=== PATIENT | female | born 2005 | race Caucasian/White ===

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

== ENCOUNTER 2024-06-11 16:56 | Outpatient (CLI) | payer OTHER, SELFPAY | END 2024-06-11 23:59 | disposition home or self-care (01) | LOC: LAB.DROPOF 16:56 | PROVIDERS: PCP Family Medicine; Visit Provider Family Medicine | DX: N39.0 Urinary tract infection, site not specified (principal) | CPT/HCPCS: 87086; 87088; 87186 ==

== ENCOUNTER 2024-10-05 11:15 | Outpatient (CLI) | payer OTHER, SELFPAY ==
[2024-10-05 16:54] LABS: Basophils % 0.5 % (0.1-2.0); Eosinophils # 0.1 K/mm3 (0.0-0.4); Eosinophils % 0.8 % (0.1-12.0); Hematocrit 41.6 % (37.0-47.0); Hemoglobin 14.1 g/dL (12.2-16.2); Lymphocytes # 1.6 K/mm3 (0.7-4.5); Mean Corpuscular HGB Conc 33.9 g/dL (31.8-35.4); Mean Corpuscular Hemoglobin 29.4 pg (27.0-31.2); Mean Corpuscular Volume 86.7 fl (81-99); Mean Platelet Volume 10.8 fl (7.4-10.4); Monocytes # 0.9 K/mm3 (0.1-1.0); Monocytes % 11.3 % (1.7-9.3); Neutrophils # 5.7 K/mm3 (1.8-7.8); Neutrophils % 68.2 % (37.0-80.0); Platelet Count 291 K/mm3 (142-424); Red Cell Distribution Width 12.6 % (11.5-17.5); White Blood Count 8.3 K/mm3 (4.5-13.0)
[2024-10-05 18:14] LABS: Chloride 103 mmol/L (98-107)
[2024-10-05 18:15] LABS: Albumin Level 4.8 g/dl (3.5-5.0); Potassium 4.3 mmoL/L (3.5-5.1); Sodium 139 mmol/L (136-145)
[2024-10-05 18:17] LABS: Blood Urea Nitrogen 12 mg/dl (7-17); Estimated Glomerular Filt Rate 127 ml/min (>60); GFR (African American) 154 ML/MIN (>60)
[2024-10-05 18:18] LABS: Alanine Aminotransferase 20 U/L (12-78); Albumin/Globulin Ratio 1.9 (1.1-1.8); Alkaline Phosphatase 49 U/L (38-126); Anion Gap 18.3 mEq/L (5-15); Aspartate Amino Transferase 29 U/L (14-36); Bilirubin,Total 0.5 mg/dl (0.2-1.3); Calcium 9.5 mg/dl (8.4-10.2); Carbon Dioxide 22 mmol/L (22.0-30.0); Globulin 2.5 g/dL (1.3-3.2); Glucose 58 mg/dl (74-100); Total Protein,Serum 7.3 g/dl (6.3-8.2)
[2024-10-05 18:50] LABS: Thyroid Stimulating Hormone 2.81 uIU/mL (0.465-4.68)
[2024-10-05 18:54] LABS: HIV Combo NEGATIVE (Negative)
[2024-10-05 19:01] LABS: Hepatitis C Ab Qual. W/ RFX NEGATIVE (Negative)
[2024-10-05 19:30] LABS: Vitamin B12 291 pg/mL (239-931)
[2024-10-05 20:50] LABS: 25-OH Vitamin D, Total 22.4 ng/mL (30-100)
== END 2024-10-05 23:59 | disposition home or self-care (01) ==
LOC: LAB.DROPOF 10-06 09:43
PROVIDERS: PCP Nurse Practitioner Family; Visit Provider Nurse Practitioner Family
DX: R25.1 Tremor, unspecified (principal); Z11.59 Encounter for screening for other viral diseases; Z11.4 Encounter for screening for human immunodeficiency virus [HIV]; E55.9 Vitamin D deficiency, unspecified; R73.09 Other abnormal glucose
CPT/HCPCS: 80053; 82306; 82607; 84443; 85025; 86803; 87389

== ENCOUNTER 2025-02-23 21:29 | Emergency (ER) | payer OTHER, SELFPAY ==
[2025-02-23 21:41] VITALS: BP 112/71; PULSE 122; RESP 20; TEMP 38.7; O2SAT 98; BMI 22.4
[2025-02-23] MEDS: MAGIC MOUTHWASH 300ML BOTTLE 15 ML PO (22:00)
[2025-02-23] MEDS: KETOROLAC 30MG/ML VIAL 30 MG IM (22:00)
[2025-02-23] MEDS: PENICILLIN G BENZATHINE 1,200,000 UNITS/2ML SYRINGE 2400000 UNIT IM (22:01)
--- NOTE | 2025-02-23 22:13 | PC.NURSE ---
Pt medicated, does not want to eat, provided water for PO challenge
--- NOTE | 2025-02-23 22:37 | HMH.EDGENADL ---
Discharge Plan Disposition Patient Disposition: Home, Self-Care Condition: Good Prescriptions Prescriptions: No Action Almedina (28) 1-35 mg-mcg tablet 1 tab PO DAILY Patient Comments: TAKE ONE (1) TABLET EVERY DAY BY ORAL ROUTE. amoxicillin 875 mg tablet 875 mg PO BID 10 Days Qty: 20 0RF propranolol 20 mg tablet 20 mg PO BID Qty: 60 2RF cholecalciferol (vitamin D3) 125 mcg (5,000 unit) capsule 125 mcg PO DAILY Qty: 120 2RF sertraline 100 mg tablet 100 mg PO DAILY 90 Days Qty: 90 0RF hydroxyzine pamoate 25 mg capsule 50 mg PO HS 30 Days Qty: 60 2RF Referrals Follow up/Referrals: Jessica Garces APRN [Primary Care Provider, Family Practice] - See instructions Activity Restrictions/Add. Instructions Additional Instructions/Restrictions: Please take Tylenol and ibuprofen every 4-6 hours as needed for pain/fever. Use 15 mL of the Magic mouthwash 4 times daily as needed. Make sure you stay hydrated. You do not need to take antibiotics since you were given the shot here. Follow-up closely with your primary care provider. Return to the emergency department for new or worsening symptoms. Clinical Impressions Clinical Impression: Strep throat Instructions Patient Instructions: DI for Strep Throat, DI for Pharyngitis/Tonsillopharyngitis -- Adult Print Language Print Language: Kiswahili Discharge ED Provider: Nissa Shukla General Adult HPI General Chief complaint: PAIN Stated complaint: Sore throat,EDUARDO,body aches Time Seen by Provider: 02/23/25 21:41 Mode of Arrival: Ambulatory Source of Information: Patient Description of Symptoms (Recalled from ER Triage Doc. by RN): pt reports strep throat that was diagnosed yesterday, she was given amoxicilllin and a steriod injection but has not had any relief. History of Present Illness HPI narrative: This patient is a 19-year-old female without significant past medical history presenting to the emergency department for evaluation with concern for sore throat. Patient was diagnosed with strep yesterday and states that she cannot swallow the amoxicillin secondary to pain. She was given a steroid shot but states that she is not gotten any relief. She denies any trouble breathing. She is still able to tolerate swallowing liquids. No other concerns or complaints noted Related Data Home Medications ?Medication ?Instructions ?Recorded ?Confirmed norethindrone 1 mg-ethinyl 1 tab PO DAILY 08/29/23 02/23/25 estradiol 35 mcg tablet (Alyacen) Previous Rx's ?Medication ?Instructions ?Recorded cholecalciferol (vitamin D3) 125 125 mcg PO DAILY #120 caps 10/06/24 mcg (5,000 unit) capsule propranolol 20 mg tablet 20 mg PO BID #60 tabs 10/06/24 sertraline 100 mg tablet 100 mg PO DAILY 90 days #90 tabs 10/19/24 hydroxyzine pamoate 25 mg capsule 50 mg (2 x 25 mg) PO HS sleep 30 11/17/24 days #60 caps amoxicillin 875 mg tablet 875 mg PO BID 10 days #20 tabs 02/23/25 Allergies Allergy/AdvReac Type Severity Reaction Status Date / Time No Known Allergies Allergy Verified 02/23/25 10:21 [facility] Disclaimer: The information contained in this section may have been updated after the patient was seen, as this information can be updated by other users. Medical History Generalized anxiety disorder Surgical History History of tonsillectomy and adenoidectomy Social History Smoking Status: Never smoker second hand exposure: Yes (at the restaurant) alcohol intake: current alcohol intake frequency: holidays/special occasions only counseling given: No substance use type: denies use current occupational status: employed and student Travel in the last 8 weeks?: None adopted: No caregiver/support person: No foster care: No household members: family housing: house lives independently: No marital status: single number of children: 0 number of grandchildren: 0 education level: high school service: No Hx Recent Travel: No sexually active: No caffeine: No physical activity: none working smoke detector in home: Yes fire extinguisher in home: Yes carbon monox detector in home: Yes firearms in home: Yes firearms unloaded and locked: Yes do you feel safe at home: Yes victim of physical abuse: No victim of emotional abuse: No victim of sexual abuse: No would you like helpful sources: No Other Medical History Have you received the Flu Vaccine for this season: No Have you received the Pneumonia Vaccine: Yes ROS Obtained: Yes All systems reviewed & no additional complaints except as documented Physical Exam General General appearance: alert, in no apparent distress and anxious Comment: Anxious appearing, tearful Head Head exam: atraumatic and normocephalic Eye Eye exam: Present normal appearance, PERRL and EOMI ENT ENT exam: Present mucous membranes moist, normal external ear exam and other (Posterior oropharynx erythematous with exudates. No uvular deviation. No trismus, stridor, or muffled voice) Neck Neck exam: Present normal inspection, full ROM and trachea midline; Absent tenderness Chest Chest inspection: Present normal inspection and symmetric chest wall rise; Absent tenderness Respiratory Respiratory exam: Present normal lung sounds bilaterally; Absent respiratory distress, wheezes, stridor or accessory muscle use Cardiovascular Cardiovascular exam: Present normal rhythm and tachycardia Abdominal Exam Abdominal exam: Present soft; Absent distention, tenderness or guarding Extremities Exam Extremities exam: Present normal inspection, full ROM and normal capillary refill; Absent tenderness or edema Back Exam Back exam: Present normal inspection and full ROM; Absent tenderness Neurological Exam Neurological exam: Present alert, oriented X3, CN II-XII intact and normal gait; Absent motor sensory deficit Psychiatric Psychiatric exam: Present normal affect and normal mood Skin Skin exam: Present warm and dry Medical Decision Making Medical Records Medical records reviewed: Yes I reviewed the patient's medical records. Screening: Per USPSTF and CDC recommendations, given the prevalence of disease in our region, it is our hospital?s policy to screen for HIV and viral Hepatitis for all patients aged 18 and over and those with ongoing risk factors. Pillo Inquiry Pt receiving controlled substance: No Vital Signs: 02/23/25 21:41 Temperature 101.7 F H Temperature Source Oral Pulse Rate [Right] 122 H Respiratory Rate 20 Blood Pressure [Right Arm] 112/71 Blood Pressure Mean [Right Arm] 84 02 Sat by Pulse Oximetry 98 Oxygen Delivery Method Room Air Lab Data Lab results reviewed: Yes I reviewed the patient's lab results. Orders (Tests/Meds): ED MEDICATIONS Discontinued Medications Generic Name Dose Route Start Last Admin Trade Name Freq PRN Reason Stop Dose Admin Ketorolac Tromethamine 30 mg 02/23/25 21:47 02/23/25 22:00 Ketorolac 30mg/Ml Vial IM 02/23/25 21:48 30 mg ONCE ONE Administration Penicillin G Benzathine 2,400,000 unit 02/23/25 21:47 02/23/25 22:01 Penicillin G Benzathine 1,200,000 Units/2ml Syringe IM 02/23/25 21:48 2,400,000 unit ONCE ONE Administration Tetracycl/Hydrocort/Nystatin/Diphen 15 ml 02/23/25 21:48 02/23/25 22:00 Magic Mouthwash 300ml Bottle PO 02/23/25 21:49 15 ml ONCE ONE Administration Medical Decision Narrative: In summary, this patient is a 19-year-old female presenting to the Emergency Department for evaluation of sore throat. She started amoxicillin for strep but is not feeling any better and states that she is not able to swallow secondary to pain. Differential diagnoses considered include but are not limited to retropharyngeal abscess, peritonsillar abscess, pain secondary to strep throat. Ruling out the most morbid conditions drove assessment. On exam, the patient is nontoxic-appearing. She is anxious., Tearful, and mildly tachycardic in the setting of low-grade fever but she has no tachypnea, no stridor, no drooling, no trismus. She has no muffled voice or uvular deviation. I do not feel that she likely has abscess at this time based on reassuring history and exam. Patient was given Magic mouthwash, IM Toradol, and a shot of Bicillin. She tolerated this well with improvement in symptoms and was able to continue tolerating oral intake. She felt better. Given this, I feel that she is appropriate for discharge home. She is given instructions for close PCP follow-up and very strict turn precautions. Critical Care Critical Care Time Critical Care Time: No
[2025-02-23 22:46] VITALS: BP 112/79; PULSE 99; RESP 20; TEMP 36.7; O2SAT 98
== END 2025-02-23 22:48 | disposition home or self-care (01) ==
PROVIDERS: Emergency Provider Emergency Medicine; PCP Nurse Practitioner Family
DX: J02.0 Streptococcal pharyngitis (principal); R50.9 Fever, unspecified; R00.0 Tachycardia, unspecified
CPT/HCPCS: 96372; 99283; J0561; J1885

== ENCOUNTER 2025-02-23 21:43 | Outpatient (CLI) | payer OTHER, SELFPAY ==
--- OUTSIDE RECORDS SUMMARY | 2025-02-23 21:46 | XMS_ITS | Clinical Summary ---
Author Organization Healthcare Address [address] [place] [address] Care Team Providers Care Pin Inserter Regulator Name Role Phone Yohan Tavarez MD Primary Care Provider + [phone] Family History Medical History Relation Name Comments Conversions - Other Father Healthy adolescent Conversions - Other Mother Healthy adolescent Relation Name Status Comments Father Mother Social History Tobacco Use Types Packs/Day Years Used Date Smoking Tobacco: Never Comments Unknown Sex and Gender Information Value Date Recorded Sex Assigned at Not on file Legal Sex Female 7:57 PM EDT Gender Identity Not on file Sexual Orientation Not on file Last Filed Vital Signs Vital Sign Reading Time Taken Comments Blood Pressure - - Pulse - - Temperature - - Respiratory Rate - - Oxygen Saturation - - Inhaled Oxygen Concentration - - Weight 30.4 kg (67 lb) 10/17/2015 1:08 PM EST Height 129.5 cm (4' 3 ) 08/22/2015 1:35 PM EST Body Mass Index - - Plan of Treatment Not on file Care Teams Pin Inserter Regulator Relationship Specialty Start Date End Date Yohan Tavarez MD [address] [place] [address] PCP - General 01/06/21
== END 2025-02-23 23:59 | disposition home or self-care (01) ==
LOC: LAB 21:44
PROVIDERS: PCP Nurse Practitioner Family; Visit Provider Nurse Practitioner Family
DX: J02.9 Acute pharyngitis, unspecified (principal)

== ENCOUNTER 2025-06-01 11:53 | Outpatient (CLI) | payer OTHER, SELFPAY ==
--- OUTSIDE RECORDS SUMMARY | 2025-06-01 22:33 | XMS_ITS | Clinical Summary ---
Author Organization Healthcare Address [address] [place] [address] Care Team Providers Care Rail Car Loader Name Role Phone Yohan Tavarez MD Primary Care Provider + [phone] Family History Medical History Relation Name Comments [...] of Treatment Not on file Care Teams Rail Car Loader Relationship Specialty Start Date End Date Yohan Tavarez MD [address] [place] [address] PCP - General 01/06/21
== END 2025-06-01 23:59 | disposition home or self-care (01) ==
LOC: LAB.DROPOF 22:32
PROVIDERS: PCP Nurse Practitioner Family; Visit Provider Nurse Practitioner Family
DX: R07.0 Pain in throat (principal)
CPT/HCPCS: 87070

== ENCOUNTER 2025-06-22 15:15 | Outpatient (CLI) | payer OTHER, SELFPAY ==
[2025-06-23 03:36] LABS: Hepatitis B Surface Antigen Negative (Negative)
[2025-06-23 07:11] LABS: Rubella Antibodies, IgG 2.02 index (Immune >0.99)
--- OUTSIDE RECORDS SUMMARY | 2025-06-23 12:35 | XMS_ITS | Clinical Summary ---
Author Organization Healthcare Address [address] [place] [address] Care Team Providers Care Expansion Joint Finisher Name Role Phone Yohan Tavarez MD Primary Care Provider + [phone] Family History Medical History Relation Name Comments [...] of Treatment Not on file Care Teams Expansion Joint Finisher Relationship Specialty Start Date End Date Yohan Tavarez MD [address] [place] [address] PCP - General 01/06/21
--- OUTSIDE RECORDS SUMMARY | 2025-06-23 12:36 | XMS_ITS | Data Portability ---
Author Organization [facility] Address [address] [place] [address] Assessment Encounter Date Assessment Date Assessment LastModified by Organization Details LastModified Time 07/24/2023 07/24/2023 Reproductive life plan discussed. Patient does plan to have children in the future. control offered. Patient accepted. Patient is having protected sex. Not available 07/24/2023 22:56:41 04/22/2024 04/22/2024 Reproductive life plan discussed. Patient does plan to have children in the future. control offered. Patient accepted. Number of sexual partners: 4 Patient is having protected sex. Patient counseled on abuse, neglect, violence, and exploitation. Partner history was discussed. Domestic abuse counseling done. [facility] for domestic abuse centers posted in patient waiting rooms and bathrooms. Not available 04/22/2024 15:39:14 08/05/2024 08/05/2024 Reproductive life plan discussed. Patient does plan to have children in the future. control offered. Patient accepted. Number of sexual partners: _ Patient is having sex. Patient counseled on abuse, neglect, violence, and exploitation. Partner history was discussed. Domestic abuse counseling done. [facility] for domestic abuse centers posted in patient waiting rooms and bathrooms. Not available 08/05/2024 16:47:43 Plan of Treatment Reminders Order Date Submit Date Provider Last Modified By Organization Details Last Modified Time Details Appointments None recorded. Lab CT + NG DNA, PCR, unspecified specimen 2023 024 [facility], [address], [address], [place], [address], 4 06:20:35 culture, urine 2022 023 [facility], [address], [place], [address], 3 06:17:37 Referral None recorded. Procedures None recorded. Surgeries None recorded. Imaging None recorded. Medication Orders Alyacen 1/35 (28) 1 mg-35 mcg tablet 2023 024 [facility] [facility], [address] [place] [address], [address], 5 09:21:43 Alyacen 1/35 (28) 1 mg-35 mcg tablet 2023 024 [facility], [address] [place] [address], [address], 4 16:51:10 Nortrel 1/35 (28) 1 mg-35 mcg tablet 2022 023 [facility], [address], [place], [address], 3 15:12:23 estradiol 1 mg tablet 2022 023 [email or web address] [id number], [address] [place], [place], [id number], 3 14:30:18 Patient TargetsNo targets recorded. Patient Instructions Encounter Date Encounter Id Patient Instructions Last Modified By Organization Details Last Modified Time 04/11/2023 [id number] learning about control: intrauterine device (iud) Not available 04/12/2023 09:17:04 Effectiveness, correct use, advantages/disadva ntages, common side effects, serious complications, contra-indications /precautions and return to fertility were reviewed for the following: Combined oral contraceptive (pills/patch/ring) , Progesterone-only pills, DepoProvera injection, Nexplanon implant,Stacie IUD, Mirena IUD, Paragard IUD, Condoms, Diaphragm, Spermacides. Not available 04/12/2023 09:16:18 Risks of hormona l control reviewed, including but not limited to thrombosis, embolism, pulmonary embolism, stroke, disability, sexual dysfunction & . Patient understands these risk are increased with smoking. Patient understands that these risks may be increased when using the patch (Ortho-Evra) or the vaginal ring (Nuva-Ring) when compared to oral control pills. Risks of bone loss with Depo Provera also reviewed. All questions answered. Pt understands & accepts risks. Instructions/warni ng signs given. RTC for IUD insertion-Kyleena Not available 04/12/2023 09:17:03 05/01/2023 [id number] -breakthrough bleeding -Estradiol 1mg [id number] -RTC for TVUS Not available 05/02/2023 12:34:08 07/24/2023 [id number] 1. Finish last 6 pills of the extended cycle pill pack, 2 pills per day x 3 days then start Nortrel. Follow up in 3 months. Consider testing for Von Willebrand's if prolonged bleeding persists. 2. Send urine culture. Recommend Rephresh for vaginal /urine odor. Not available 07/24/2023 22:53:45 We will call abnormal test results in 7-10 days. Patient is advised that normal test results will be retrievable through [facility] Patient Portal and that they will be notified of the availability of normal results from [facility] by phone call, text or email. Not available 07/24/2023 22:53:13 04/22/2024 [id number] body mass index: care instructions Not available 04/22/2024 15:44:00 Continue MYRIAM's. Plan first cervical cancer screening with next years exam. Not available 04/22/2024 15:44:33 1. Risks of hormonal control reviewed, including but not limited to thrombosis, embolism, pulmonary embolism, stroke, disability, sexual dysfunction & . Patient understands these risk are increased with smoking. Patient understands that these risks may be increased when using the patch (Ortho-Evra) or the vaginal ring (Nuva-Ring) when compared to oral control pills. Risks of bone loss with Depo Provera also reviewed. All questions answered. Pt understands & accepts risks. Instructions/warni ng signs given. 2. We will call abnormal test results in 7-10 days. Patient is advised that normal test results will be retrievable through [facility] Patient Portal and that they will be notified of the availability of normal results from [facility] by phone call, text or email. Not available 04/22/2024 15:44:19 08/05/2024 [id number] body mass index: care instructions Not available 08/05/2024 16:47:13 Effectiveness, correct use, advantages/disadva ntages, common side effects, serious complications, contra-indications /precautions and return to fertility were reviewed for the following: Combined oral contraceptive (pills/patch/ring) , Progesterone-only pills, DepoProvera injection, Nexplanon implant,Stacie IUD, Mirena IUD, Paragard IUD, Condoms, Diaphragm, Spermacides. Not available 08/05/2024 16:47:18 Risks of hormona l control reviewed, including but not limited to thrombosis, embolism, pulmonary embolism, stroke, disability, sexual dysfunction & . Patient understands these risk are increased with smoking. Patient understands that these risks may be increased when using the patch (Ortho-Evra) or the vaginal ring (Nuva-Ring) when compared to oral control pills. Risks of bone loss with Depo Provera also reviewed. All questions answered. Pt understands & accepts risks. Instructions/warni ng signs given. Not available 08/05/2024 16:47:22 Reason for Referral None Reported. Results Created Date Observation Date Name Description Value Unit Range Abnormal Flag Note LastModifiedBy Organization Detail LastModifiedTime 07/24/2007/26/2023 URINE CULTU GERSON DURANT urine culture, routine Final report Not Available [facility] ([facility]) [address], [place], [address], 07/26/2023 06:17:37 07/24/2007/26/2023 URINE CULTU RE, ROUTI NE result 1 COMMEN T Mixed uroge nital aníbal Less than 10,00 0 colon ies/m L Not Available [facility] ([facility]) [address], [place], [address], 07/26/2023 06:17:37 04/22/2004/24/2024 CHLAM YDIA/ GC AMPLI FICAT ION chlamydia trachomatis, FLOYD Negati ve negati ve Not Available [facility] ([facility]) [address], [place], [address], 04/24/2024 06:20:35 04/22/2004/24/2024 CHLAM YDIA/ GC AMPLI FICAT ION neisseria gonorrhoeae, FLOYD Negati ve negati ve Not Available [facility] ([facility]) [address] [place], [address], 04/24/2024 06:20:35 Result Notes None recorded. Problems Name Problem SNOMED Code Status Onset Date Resolution Date Notes Provider Name and Address Organization Details Recorded Time COVID-19 [id number] Completed 202110/19/2022 Carmen lund, [place] - [facility] 3 15:26:00 Fatigue 35724138 Completed 202108/05/2024 Lida Larsen, CAD TECHNICIAN [address], [place], [address], [place] - [facility] 4 16:45:22 Normal body mass index 12222252 Active 2021 Lida Larsen, CAD TECHNICIAN [address], [place], [address], [place] - [facility] 4 16:45:24 Dysmenor leroy [id number] Completed 202104/22/2024 Removal Reason: resolved with BCP Sherly Ramesh, CAD TECHNICIAN [address], [place], [address], [place] - [facility] 4 15:43:04 Uses depot contrace ption 654846476 Completed 202204/12/2023 Lida Larsen, CAD TECHNICIAN [address], [place], [address], [place] - [facility] 3 09:15:42 Irregula r intermen strual bleeding 22293763 Completed 202204/22/2024 Sherly Ramesh APRN [address], [place], [address], [place] - [facility] 4 15:43:13 Dyspareu [facility] 02235263 Active 2022 Lida Larsen, CAD TECHNICIAN [address], [place], [address], [place] - [facility] 4 16:45:19 Break-th rough bleeding 91392000 Completed 202204/22/2024 Sherly Ramesh APRN [address], [place], [address], [place] - [facility] 4 15:43:09 Problem Notes None recorded. Procedures Surgical History Date Name Laterality Status Provider Name and Address Organization Details Recorded Time Tonsillectomy completed Liat Cintron [place] - [facility] 08/13/2019 14:25:23 Imaging Results None recorded. Procedure Notes None recorded. Medical Equipment None Reported. Allergies No known drug allergies Medications Name Sig Start Date Stop Date Status Note LastModified by Organization Details LastModified Time amoxicillin 500 mg capsule TAKE 1 CAPSULE BY MOUTH TWICE DAILY FOR 10 DAYS active Not Available Not Available No t Available trazodone 50 mg tablet 09/18 completed Not Available Not Available Not Available azithromyci n 250 mg tablet 04/04 completed Not Available Not Available Not Available phenazopyri dine 200 mg tablet TAKE 1 TABLET BY MOUTH 3 TIMES DAILY FOR 2 DAYS 09/12 completed Not Available Not Available Not Available sertraline 100 mg tablet 1 po qd active Not Available Not Available Not Available sulfamethox azole 800 mg-trimetho prim 160 mg tablet TAKE 1 TABLET BY MOUTH TWICE DAILY FOR 7 DAYS 08/05 completed Not Available Not Available Not Available estradiol 1 mg tablet TAKE 1 TABLET BY MOUTH EVERY DAY FOR 21 DAYS 07/24 completed Not Available Not Available Not Available triamcinolo ne acetonide 0.025 % topical cream 04/22 completed Not Available Not Available Not Available meclizine 25 mg tablet TAKE 1 TABLET BY MOUTH EVERY 8 HOURS NEEDED 10/19 completed Not Available Not Available Not Available erythromyci n 5 mg/gram (0.5 %) eye ointment 09/12 completed Not Available Not Available Not Available sertraline 25 mg tablet TAKE 1 TABLET BY MOUTH DAILY 07/24 completed Not Available Not Available Not Available hydroxyzine HCl 25 mg tablet TAKE 1 TABLET BY MOUTH THREE TIMES DAILY NEEDED FOR ANXIETY 07/24 completed Not Available Not Available Not Available norethindro ne (contracept libertad) 0.35 mg tablet TAKE 1 TABLET BY MOUTH EVERY DAY 07/24 completed Not Available Not Available Not Available ondansetron 4 mg disintegrat ing tablet DISSOLVE 1 TABLET ON THE TONGUE EVERY 8 HOURS NEEDED FOR NAUSEA 09/12 completed Not Available Not Available Not Available fluticasone propionate 50 mcg/actuati on nasal spray,suspe nsion 08/15 completed Not Available Not Available Not Available sertraline 50 mg tablet TAKE 1 TABLET BY MOUTH DAILY 04/22 completed Not Available Not Available Not Available medroxyprog esterone 150 mg/mL intramuscul ar suspension Inject 1 mL every 3 months by intramusc ular route. 12/05 completed Not Available Not Available Not Available cholecalcif indy (vitamin D3) 125 mcg (5,000 unit) capsule Take 1 capsule every day by oral route for 30 days. 04/04 completed Not Available Not Available Not Available amoxicillin 875 mg-potassiu m clavulanate 125 mg tablet TAKE 1 TABLET BY MOUTH EVERY 12 HOURS 04/11 completed Not Available Not Available Not Available drospirenon e 3 mg-ethinyl estradiol 0.02 mg tablet TAKE 1 TABLET BY MOUTH ONCE DAILY 08/15 completed Not Available Not Available Not Available clindamycin 1.2 % (1 % base)-benzo yl peroxide 5 % topical gel 08/15 completed Not Available Not Available Not Available L norgest/E estradiol-E estrad 0.1 mg-20 mcg (84)/10 mcg (7) tabs,3mos TAKE 1 TABLET BY MOUTH EVERY DAY 07/24 completed Not Available Not Available Not Available Cyndi 3 mg-0.03 mg tablet TAKE 1 TABLET BY MOUTH EVERY DAY 09/18 completed Not Available Not Available Not Available Alyacen 35 (28) 1 mg-35 mcg tablet Take 1 tablet every day by oral route for 84 days. active Not Available Not Available No t Available guaifenesin ER 600 mg tablet, extended release 12 hr TAKE TWO TABLETS BY MOUTH TWICE DAILY NEEDED FOR COUGH AND CONGESTIO N 04/11 completed Not Available Not Available Not Available Simpesse 0.15 mg-30 mcg (84)/10 mcg(7) tablets,3 month dose pack TAKE 1 TABLET BY MOUTH EVERY DAY 04/04 completed Not Available Not Available Not Available Vitals Date Recorded Body height Pain severity - 0-10 verbal numeric rating [Score] - Reported Body mass index (BMI) Body mass index (BMI) [Percentile] Per age and sex Body weight Systolic And Diastolic Provider Name and Address Organization Details Last Updated DateTime 3 157.48 cm 0 19.9 kg/m2 28 % 57324.5 7 g 116/72 mm[Hg] Mary [employer] [facility] 3 13:52:35 Date Recorded Body height Body mass index (BMI) [Percentile] Per age and sex Body mass index (BMI) Body weight Pain severity - 0-10 verbal numeric rating [Score] - Reported Systolic And Diastolic Provider Name and Address Organization Details Last Updated DateTime 4 157.48 cm 25 % 19.8 kg/m2 33710.9 8 g 0 108/64 mm[Hg] Shannon Presley [facility] 4 15:17:08 Date Recorded Body height Pain severity - 0-10 verbal numeric rating [Score] - Reported Body mass index (BMI) [Percentile] Per age and sex Body mass index (BMI) Body weight Systolic And Diastolic Provider Name and Address Organization Details Last Updated DateTime 3 157.48 cm 0 30 % 20.1 kg/m2 74969.1 6 g 114/70 mm[Hg] Mary Borges [facility] 3 16:01:42 Date Recorded Body height Body mass index (BMI) [Percentile] Per age and sex Body mass index (BMI) Body weight Pain severity - 0-10 verbal numeric rating [Score] - Reported Systolic And Diastolic Provider Name and Address Organization Details Last Updated DateTime 3 157.48 cm 35 % 20.5 kg/m2 21111.3 5 g 0 112/72 mm[Hg] Shannon Presley [facility] 3 14:34:54 Date Recorded Body height Pain severity - 0-10 verbal numeric rating [Score] - Reported Body mass index (BMI) [Percentile] Per age and sex Body mass index (BMI) Body weight Provider Name and Address Organization Details Last Updated DateTime 08/05/2024 157.48 cm 0 49 % 21.7 kg/m2 58316.7 7 g Mary Borges [facility] 4 16:26:59 Social History Question Answer Notes LastModified by Organizat ion Details LastModified Time Tobacco Smoking Status Never Smoker Liat Saida lund, [facility] 08/13/2019 14:25:28 Do You Have An Advance Directive? No [email or web address] Information not available 07/24/2023 Are You Blind Or Do You Have Difficulty Seeing? No Information not available 07/24/2023 Is Blood Transfusion Acceptable In An Emergency? Yes [email or web address] Information not available 07/24/2023 What Is Your Level Of Caffeine Consumption? Occasional [email or web address] Information not available 08/13/2019 How Much Tobacco Do You Chew? None [email or web address] Information not available 08/13/2019 In The 14 Days Before Symptom Onset, Have You Had Close Contact With A Laboratory-confir med COVID-19 While That Case Was Ill? No Information not available 04/11/2023 In The 14 Days Before Symptom Onset, Have You Had Close Contact With A Person Who Is Under Investigation For COVID-19 While That Person Was Ill? No Information not available 04/11/2023 Have You Been To An Area Known To Be High Risk For COVID-19? No [email or web address] Information not available 04/11/2023 Are You Deaf Or Do You Have Serious Difficulty Hearing? No [email or web address] Information not available 07/24/2023 What Type Of Diet Are You Following? REGULAR Information not available 08/13/2019 Have You Processed Blood Or Body Fluids From An Ebola Virus Disease Patient Without Appropriate PPE? No [email or web address] Information not available 04/11/2023 Do You Reside In Or Have You Traveled To An Area Where Ebola Virus Transmission Is Active? No [email or web address] Information not available 04/11/2023 What Is The Highest Grade Or Level Of School You Have Completed Or The Highest Degree You Have Received? [id number] [email or web address] Information not available 04/04/2022 Have There Been Any Changes To Your Family Or Social Situation? No [email or web address] Information no t available 07/24/2023 What Is The Fluoride Status Of Your Home? Fluoridated Information not available 07/24/2023 Have You Recently Or Are You Planning To Travel To An Area With Zika Virus? No Information not available 04/11/2023 Live Alone Or With Others? With Others [email or web address] Information not available 08/13/2019 Last Menstrual Period? 04/08/2024 Information not available 04/22/2024 Do You Have A Medical Power Of Photography Assistant? No [email or web address] Information not available 07/24/2023 What Was The Date Of Your Most Recent Tobacco Screening? 08/05/2024 Information not available 08/05/2024 How Many Children Do You Have? 0 [email or web address] Information not available 08/13/2019 What Is Your Relationship Status? Single [email or web address] Information not available 08/13/2019 Are You Sexually Active? Yes [email or web address] Information not available 08/05/2024 Do You Have Smoke And Carbon Monoxide Detectors In Your Home? Yes [email or web address] Information not available 07/24/2023 Are You Passively Exposed To Smoke? No [email or web address] Information no t available 07/24/2023 How Much Tobacco Do You Smoke? No [email or web address] Information not available 08/13/2019 Has Tobacco Cessation Counseling Been Provided? No Information not available 09/12/2022 On What Date Was Tobacco Cessation Counseling Provided? 04/22/2024 [email or web address] Information not available 04/22/2024 How Many Years Have You Smoked Tobacco? 0 [email or web address] Information not available 08/13/2019 Do You Have Difficulty Walking Or Climbing Stairs? No [email or web address] Information not available 07/24/2023 Are You Currently In School? No Information not available 10/19/2022 What Contraceptive Method Was Reported At Start Of This Visit? Combined Oral Contraceptive Pills [email or web address] Information not available 07/24/2023 What Contraceptive Method Was Reported At End Of This Visit? Combined Oral Contraceptive Pills [email or web address] Information not available 12/05/2022 Do You Want To Talk About Contraception Or Prevention During Your Visit Today? No - I Do Not Want To Talk About Contraception Today Because I Am Here For Something Else Information not available 07/24/2023 How Was The Contraceptive Method Provided? Prescription [email or web address] Information not available 09/18/2021 Do You Have Any Future Plans To Get ? No, I Don't Want To Become [email or web address] Information not available 09/18/2021 Sex: Female Functional Status Question Answer Note LastModified by Organization Details LastModified Time Do you or have you ever used smokeless tobacco? Never used smokeless tobacco [email or web address] Information not available 08/13/2019 Are you currently employed? Yes Information not available 10/19/2022 Do you have transportation difficulties? No [email or web address] Information not available 07/24/2023 Are you able to care for yourself independently? Yes Information not available 12/05/2022 Do you have difficulty dressing, bathing, grooming, or toileting? No [email or web address] Information not available 07/24/2023 Do you or have you ever used e-cigarettes or vape? Never used electronic cigarettes [email or web address] Information not available 08/13/2019 What is your exercise level? Moderate [email or web address] Information not available 08/13/2019 Do you use any illicit or recreational drugs? No [email or web address] Information not available 07/24/2023 Do you or have you ever used any other forms of tobacco or nicotine? No [email or web address] Information not available 09/12/2022 What is your level of alcohol consumption? None [email or web address] Information not available 08/13/2019 What is your status? Not [email or web address] Information not available 09/18/2021 Are you able to walk independently without assistance or assistive devices? YESWOREST [email or web address] Information not available 08/13/2019 Do you have difficulty doing errands alone? No [email or web address] Information not available 07/24/2023 What is your occupation? [employer] Information not available 10/19/2022 Mental Status Question Answer Note LastModified by Organizat ion Details LastModified Time Do you feel stressed (tense, restless, nervous, or anxious, or unable to sleep at night)? [id number] [email or web address] Information not available 09/18/2021 Do you have difficulty concentrating, remembering or making decisions? No [email or web address] Information no t available 07/24/2023 Family History Relationship Description Onset Age of this Age Resolved Age Notes LastModified by Organization Details LastModified Time Maternal Grandfather Chronic obstructive pulmonary disease Not available 2018 14:26:44 Maternal Grandfather Asthma [email or web address] Not available 07/26 14:26:53 Father Diabetes mellitus [email or web address] Not available 2018 14:27:05 Paternal Grandmother Diabetes mellitus [email or web address] Not available 2018 14:27:05 Medical History No medical history recorded. Gynecological History Statement/Question Response Abnormal Pap N Flow Moderate Date of LMP 07/15/2024 On BCP's at Conception? N Post Menopausal Bleeding N STIs/STDs N HPV Vaccine Y Duration of Flow (days) 5 Current Control Method BCPs Age at Menarche 13 Last Annual Exam/Provider 04/22/2024/OCT Frequency of Cycle (Q days) 27 Sexually Active? Y Date of Last Cervical Culture 04/22/2024 Menses Monthly Y Sexual Problems? N LMP Approximate Desired Control Method BCPs Hormone Replacement Therapy N Obstetrics History GPAL:G 0 P 0 0 0 0 Immunizations Vaccine Type Date Status Note Provider Name and Address Organization Details Recorded Time Influenza, split virus, quadrivalent, preservative 08/15/20 20 cancelled patient objection Dana Rivero APRN [address], [place], [address], [place] [facility] 08/15/2020 16:32:52 Influenza, split virus, quadrivalent, preservative 09/18/19 22 cancelled patient objection Dana Rivero APRN [address], [place], [address], [place] [facility] 09/18/2021 12:53:06 Influenza, split virus, quadrivalent, preservative 05/04/20 19 completed Sherly Ramesh APRN [address], [place], [address], [place] [facility] 07/24/2023 22:57:05 meningococcal MCV4, unspecified formulation 11/26/19 15 completed Liat Cintron null, [place] - [facility] 09/12/2022 16:37:28 MMR 03/25/20 08 completed Liat Cintron null, - [facility] 09/12/2022 16:37:28 pneumococcal conjugate PCV 7 05/30/20 04 completed Liat [place]int[place] [facility] 09/12/2022 16:37:28 Tdap 11/26/19 15 completed Liat Cint[place] [facility] 09/12/2022 16:37:28 pneumococcal conjugate PCV 7 04/16/20 05 completed Liat Cintron null, - [facility] 09/12/2022 16:37:28 IPV 03/25/20 08 completed Liat Cintron null, - [facility] 09/12/2022 16:37:28 Hep A, ped/adol, 2 dose 03/11/20 18 completed Liat Cintron null, - [facility] 09/12/2022 16:37:28 IPV 04/16/20 05 completed Liat Cintron null, - [facility] 09/12/2022 16:37:28 Hib (PRP-OMP) 05/30/20 04 completed Liat Cintron null, - [facility] 09/12/2022 16:37:28 IPV 08/09/20 04 completed Liat Cintron null, - [facility] 09/12/2022 16:37:28 Hep A, ped/adol, 2 dose 11/26/19 15 completed Liat Cint[place] [facility] 09/12/2022 16:37:28 pneumococcal conjugate PCV 7 10/11/19 05 completed Liat Cintron null, - [facility] 09/12/2022 16:37:28 DTaP, unspecified formulation 08/09/20 04 completed Liat Cintron null, - [facility] 09/12/2022 16:37:28 DTaP-Hep B-IPV 05/30/20 04 completed Liat Cintron null, - [facility] 09/12/2022 16:37:28 MMR 07/12/20 05 completed Liat Cint[place] [facility] 09/12/2022 16:37:28 Hib-Hep B 04/16/20 05 completed Liatsocrates Cintron null, [place] - [facility] 09/12/2022 16:37:28 Hep B, adolescent or pediatric 03/21/20 04 completed Liat Cint[place], [place] [facility] 09/12/2022 16:37:28 Hib (PRP-OMP) 08/09/20 04 completed Liatdesiree C[place] [facility] 09/12/2022 16:37:28 pneumococcal conjugate PCV 7 08/09/20 04 completed Liat [place] [facility] 09/12/2022 16:37:28 varicella 12/18/19 08 completed Liat [place] [facility] 09/12/2022 16:37:28 HPV9 03/11/20 18 completed Liat [place] [facility] 09/12/2022 16:37:28 DTaP, unspecified formulation 07/12/20 05 completed Liat [place] [facility] 09/12/2022 16:37:28 Influenza, split virus, quadrivalent, preservative 06/25/20 18 completed Liat [place] [facility] 09/12/2022 16:37:28 DTaP, unspecified formulation 10/11/19 05 completed Liat [place] [facility] 09/12/2022 16:37:28 Meningococcal MCV4O 07/01/20 20 completed Liat [place] [facility] 09/12/2022 16:37:28 varicella 04/16/20 05 completed Liatdesiree [place] [facility] 09/12/2022 16:37:28 HPV, quadrivalent 11/26/19 15 completed Liat [place] [facility] 09/12/2022 16:37:28 DTaP, unspecified formulation 03/25/20 08 completed Liat Sa[place] [facility] 09/12/2022 16:37:28 Past Encounters Encounter ID Performer Location Encounter Start Date Encounter Closed Date Diagnosis/Indication Diagnosis SNOMED-CT Code Diagnosis ICD10 Code Diagnosis IMO Codes Diagnosis Note [id number] LAZARO Garay [employer]ERATOR [employer] [address] [place] [address] JOANNE Espinosa [address] 7 08/13/2019 14:14:21 08/13/2019 14:52:16 Routine gynecologic examination done 7154161027 9101 Z01.419 Depression screening 171 427073 Z13.89 Hypertensi on screening 527702678 Z13.6 Diet education 89441959 Z71.3 Encourage healthy eating Counseling 907068131 Z71 .82 Encouraged regular exercise Irregular periods 993372 07 N92.6 Acne 00741762 L70.9 Normal bod y mass index 06717411 Z68.52 [id number] LAZARO Garay [employer] [address] [place] [address] JOANNE Espinosa [id number] 7 08/15/2020 15:53:39 08/15/2020 16:33:01 Routine gynecologic examination done 8673280600 91 Z01.419 Hypertensi on screening 943978700 Z13.6 Diet education 60817778 Z71.3 Encourage healthy eating Counseling 085904267 Z71 .82 Encouraged regular exercise Examinatio n of blood pressure 943895383 Z01.30 Vaccine de clined by patient 2895685824 02 Z28.21 Pt declined flu vaccine today. Venereal d isease screening 581907977 Z11.3 Irregular periods 223680 07 N92.6 Normal bod y mass index 57986748 Z68.52 [id number] LAZARO Garay [employer]ATOR [employer] [address] [place] [address] JOANNE Espinosa [id number] 7 09/18/2021 08:44:04 09/18/2021 09:54:28 Routine gynecologic examination done 7948645334 9101 Z01.419 Depression screening 171 385643 Z13.89 Hypertensi on screening 290974552 Z13.6 Diet education 93420111 Z71.3 Encourage healthy eating Counseling 126631931 Z71 .82 Encouraged regular exercise 30-40min/d ay 4-5 days/wk Contracept ion care management 108426079 Z30.9 Examinatio n of blood pressure 996600568 Z01.30 Venereal d isease screening 980138329 Z11.3 Vaccine de clined by patient 5933787980 02 Z28.21 Pt declined flu vaccine today. Fatigue 03935742 R53.83 Dysmenorrhea 508414752 N 94.6 Normal bod y mass index 02238615 Z68.52 [id number] LAZARO Garay RE[employer]ATOR [employer] [address] [place] [address] JOANNE Espinosa 34[address] 7 04/04/2022 14:42:36 04/04/2022 15:18:28 Initiation of depot contraception done 7313548316 63674 Z30.344 [id number] LAZARO Garay [employer] [address] [place] [address] JOANNE Espinosa [id number] 7 06/28/2022 16:32:12 06/28/2022 16:56:31 Uses depot contraception 819151813 Z30.42 [id number] LAZARO Garay [employer]ATOR [employer] [address] [place] [address] JOANNE Espinosa [id number] 7 09/12/2022 16:33:30 09/12/2022 17:11:49 Uses depot contraception 651250693 Z30.42 Irregular intermenstrual bleeding 58025657 N92.1 Dysmenorrhea 289444592 N 94.6 [id number] LAZARO Garay [employer]ATOR [employer] [address] [place] [address] JOANNE Espinosa [id number] 7 10/19/2022 15:19:35 10/19/2022 15:53:42 Irregular intermenstrual bleeding 77807742 N92.1 Dysmenorrhea 098081118 N 94.6 Dyspareunia 14317984 N94 .10 Uses depot contraception 582985279 Z30.42 Venereal d isease screening 662153500 Z11.3 [id number] LAZARO Garay RE[employer]ATOR [employer] [address] [place] [address] JOANNE Espinosa [id number] 7 11/01/2022 13:16:31 11/01/2022 14:14:25 Break-through bleeding 19991591 N92.1 [id number] LAZARO Garay [employer] [address] [place] [address] JOANNE Espinosa [id number] 7 12/05/2022 15:53:35 12/05/2022 16:21:00 Routine gynecologic examination done 6389792992 9101 Z01.419 Depression screening 171 879673 Z13.89 Hypertensi on screening 001438787 Z13.6 Diet education 84461888 Z71.3 Encourage healthy eating Counseling 735656804 Z71 .82 Encouraged regular exercise 30-40min/d ay 4-5 days/wk Contracept ion care management 669392053 Z30.9 Examinatio n of blood pressure 398651388 Z01.30 Venereal d isease screening 009259912 Z11.3 Normal bod y mass index 63456869 Z68.52 Anxiety 41960924 F41.9 Plans to schedule with PCP to discuss tx options [id number] LAZARO Ford RE[employer]ATOR [employer] [address] [place] [address] [place] [address] 7 04/11/2023 13:47:59 04/11/2023 14:26:23 Break-through bleeding 15370891 N92.1 Dysmenorrhea 368875135 N 94.6 Dyspareunia 07305449 N94 .10 Irregular intermenstrual bleeding 48170739 N92.1 Contracept ion care management 914957371 Z30.9 [id number] LAZARO Ford RE[employer]ATOR [employer] [address] [place] [address] [place] [address] 7 05/01/2023 15:50:00 05/01/2023 16:15:55 Counseling 066678742 Z71.82 Exercise counseldelmy samuel Patient encouraged to exercise 30 minutes 5 days a week. Examinatio n of blood pressure 759527646 Z01.30 Contracept ion care education 637494376 Z30.09 Break-thro ugh bleeding 71570816 N92.1 [id number] LAZARO Banks [facility] [address] [place] [address] 07/24/2023 14:16:46 07/24/2023 15:20:17 Surveillance of oral contraception 090635160 Z30.41 Abnormal urine odor 8769 003 R82.90 Dysmenorrhea 765693087 N 94.6 Irregular intermenstrual bleeding 01097213 N92.1 [id number] Sherly Ramesh APRN [place] [address] [place] [address] 04/22/2024 15:10:06 04/22/2024 15:47:00 Routine gynecologic examination done 0937816256 9101 Z01.419 Examinatio n of blood pressure 961788833 Z01.30 BP goal < 140/90 Depression screening 171 061482 Z13.31 PHQ-9 score of 0. On sertraline 100 mg per PCP Diet education 30610612 Z71.3 8062-5518 calorie diet recommende d with an emphasis on reducing sugar and refined carbohydra wyatt, avoiding highly processed foods and decreasing saturated fats. She does not require dietary consult. Counseling 345418060 Z71 .82 Exercise counseldelmy samuel Patient encouraged to exercise 30 minutes 5 days a week. Screening for Chlamydia trachomatis 315163610 Z11.8 Z11.3 Surveillan ce of oral contraception 862991833 Z30.41 Anxiety 80064570 F41.9 on sertraline 100 mg daily Body mass index less than 20 724865250 Z68.52 [id number] Lida Larsen APRN [place] [address] [place] [address] 08/05/2024 16:23:37 08/05/2024 16:56:01 Surveillance of oral contraception 018229031 Z30.41 Vaccination declined 410 1408763 Z28.21 Seasonal flu vaccine offered and declined Venereal d isease screening 933258407 Z11.3 Body mass index 20-24 - normal 949638000 Z68.21 Health Concerns Section Related Observation LastModified by Organization Detai ls LastModified Time None Recorded Concern Status LastModified by Organization Details LastModified Time None Recorded Advance Directives Directive N: Payers Insurance Date Sequence Insurance Name Policy Number Policy Baum Covered Member ID Baum Member ID Guarantor Name 06/28/2022 1 [employer] (MEDICAID REPLACEMENT - HMO) [id number] [employer] [id number] [employer]vi[employer] 04/25/2025 1 [employer] [facility] (MEDICAID HMO) Nolan Argueta [id number] Nolan Argueta 04/25/2025 [place] [facility] [place] [place] (MEDICAID) [id number] Nolan Argueta [id number] Nolan Argueta Notes Date Note Type Note Provider Name and Address Organization Details Recorded Time 04/11/2023 text/html Nolan is here for period pains and concerns with her BC pills.She has tried several different ocp and she is having breakthrough bleeding and pain. She would like to discuss other options. After discussing all options she would like Kem[facility]. Reviewed r/b of IUD and the insertion procedure. She accepts all r/b. Lida Larsen, CAD TECHNICIAN [address], [place], [address], [place] - [facility] 04/12/2023 09:17:29 05/01/2023 text/html Patient is a 18 year old established patient who presents with needing contraception. She has interest in discussing contraceptive options. Coming to the visit, her current contraceptive method is contraceptive medication (see medication list). She is interested in switching a new method because of side effects. She has used prior contraceptive method(s). Previous methods tried include contraceptive medications and she did have any problems with these. She noted abnormal bleeding with contraceptive medications. She has previously sought professional help for this problem. Nolan has tried three different ocp and has had break through bleeding with all of them. She wants to know what can be done.She decided against IUD. She only wants a pill or nothing at all.Discussed trying Estradiol one more time then RTC for TVUS to r/o abnormalities. She states this plan sounds good. She said her period will be due when she finished Estradiol so she will plan to RTC 2 weeks after period is finished and we will f/u on if there is any break through bleeding. Lida Larsen, CAD TECHNICIAN [address], [place], [address], [place] - [facility] 05/02/2023 12:34:56 07/24/2023 text/html Abnormal BleedingReported by PatientHPIFor onset/timing, patient reportsevery cycle. For duration, patient reportsdaily. For quality, patient reportsmoderate. For severity, patient reportsrequires double protection,interferes with daily activities,requires getting up at night, andbleeding through onto clothes/sheets. For context, patient reportsoccurs between normal cyclesandcurrent contraception: (bcp). For associated symptoms, patient reportsno dysmenorrhea,no pelvic pain,no abdominal pain,no dyspareunia,no fatigue,no dizziness,no anemia/iron supplements,no shortness of breath,no cp/palpitations,no bloating,no change in bowel function,no urinary symptoms,no pms,no vaginal discharge, andno vaginal itching/irritation. Nolan is here with c/o prolonged bleeding despite several different types of control. She stopped bleeding while on additional estradiol but restarted as soon as she stopped. Sherly Ramesh, CAD TECHNICIAN [address], [place], [address], [place] - [facility] 07/24/2023 22:57:24 04/22/2024 text/html Annual - MOBRepo rted by PatientHistoryFor history, patient reportslast annual exam: 2022,no gynecologic complaints, andno change in interval history.ContraceptionF or current contraception, patient reportssatisfied with current contraceptionandoral contraceptives.Prevent ative measuresFor preventive measures, patient reportsall immunization are current,encourage self breast examination,encourage regular exercise,encourage no tobacco use, andencourage regular mammograms starting age 40. The patient is a 19 year old reproductive age White female who presents as a/an established patient for annual gynecologic wellness exam. She denies gynecologic concerns. See above notations for significant gynecologic history of present illness as reported per patient during visit intake. Sherly Ramesh, CAD TECHNICIAN [address], [place], [address], [place] - [facility] 04/22/2024 15:45:15 08/05/2024 text/html Nolan presents today for f/u taking BCPs. She is doing well w/them. Denies rasmussen/migraines. Periods are light and 4-5 days in length, non painful. No sales research analyst c/o today.Declined influenza immunization. Lida Larsen, CAD TECHNICIAN [address], [place], [address], [place] [facility] 08/05/2024 16:48:23 OBGyn Episode No OBEpisode recorded.
== END 2025-06-22 23:59 ==
LOC: LAB.DROPOF 06-23 12:32
PROVIDERS: PCP Nurse Practitioner Family; Visit Provider Nurse Practitioner Family
DX: Z02.0 Encounter for examination for admission to educational institution (principal); Z11.59 Encounter for screening for other viral diseases
CPT/HCPCS: 86706; 86762; 87340

== ENCOUNTER 2025-06-24 14:11 | Outpatient (CLI) | payer OTHER, SELFPAY ==
--- OUTSIDE RECORDS SUMMARY | 2025-06-24 14:21 | XMS_ITS | Clinical Summary ---
Author Organization Healthcare Address [address] [place] [address] Care Team Providers Care Research Recruiter Name Role Phone Yohan Tavarez MD Primary Care Provider + [phone] Family History Medical History Relation Name Comments [...] of Treatment Not on file Care Teams Research Recruiter Relationship Specialty Start Date End Date Yohan Tavarez MD [address] [place] [address] PCP - General 01/06/21
== END 2025-06-24 23:59 | disposition home or self-care (01) ==
LOC: LAB 14:12
PROVIDERS: PCP Nurse Practitioner Family; Visit Provider Nurse Practitioner Family
DX: Z11.1 Encounter for screening for respiratory tuberculosis (principal)
CPT/HCPCS: 36415; 86480